=== PATIENT | male | born 1975 | race Caucasian/White ===

== ENCOUNTER → 2017-11-20 08:55 | Outpatient (CLI) | payer OTHER, SELFPAY ==
--- NOTE | 2017-11-20 09:00 | RAD_ITS ---
PROCEDURE: Fluoroscopic guided Hip Injection DATE: November 20, 2017. INDICATION: Male, 42 years old. Chronic hip pain. PHYSICIAN: Yonatan Kat M.D. MEDICATIONS: 60 mg of Kenalog and 4 cc of 1% lidocaine. 2% Lidocaine administered subcutaneously for local anesthesia. ACCESS SITE: Right hip. NEEDLE: 22-gauge spinal needle. FLUOROSCOPY TIME (if supplied): (0:24) minutes/seconds FINDINGS: The risks, benefits, and alternatives to the procedure were explained to the patient. The specific risks of bleeding, infection, and neurovascular injury were detailed and accepted. Witnessed informed consent was obtained. A 22-gauge spinal needle was positioned under radiographic fluoroscopic localization. Approximately 2 cc of Isovue 300 instilled for localization purposes. Medication was then injected. The patient tolerated the procedure well without any immediate complications. The patient was placed supine with head elevated and returned to the floor in stable condition. RAD/Inj/Asp Vinny Jt Should/Hip/Knee IMPRESSION: 1. Successful fluoroscopic guided hip injection. Electronically Signed: Yonatan Kat MD at 11:01 EDT Tel [phone], Service support ,
== END ==
PROVIDERS: Family Provider Family Medicine; PCP Family Medicine; Visit Provider Family Medicine
DX: M16.11 Unilateral primary osteoarthritis, right hip (principal)
CPT/HCPCS: 20610; 77002; Q9967

== ENCOUNTER → 2018-07-10 09:12 | Outpatient (CLI) | payer OTHER, SELFPAY ==
--- NOTE | 2018-07-10 09:30 | RAD_ITS ---
PROCEDURE: Fluoroscopic guided Hip Injection DATE: July 10, 2018. INDICATION: Male, 42 years old. Right hip pain. PHYSICIAN: Yonatan Kat M.D. MEDICATIONS: 40 mg of Kenalog and 4 cc of lidocaine. 2% lidocaine administered subcutaneously for local anesthesia. ACCESS SITE: Right hip. NEEDLE: 22-gauge spinal needle. FLUOROSCOPY TIME (if supplied): (1:07) minutes/seconds FINDINGS: The risks, benefits, and alternatives to the procedure were explained to the patient. The specific risks of bleeding, infection, and neurovascular injury were detailed and accepted. Witnessed informed consent was obtained. A 22-gauge spinal needle was positioned under radiographic fluoroscopic localization. Approximately 2 cc of Isovue-300 instilled for localization purposes. Medication was then injected. The patient tolerated the procedure well without any immediate complications. The patient was placed supine with head elevated and returned to the floor in stable condition. RAD/Inj/Asp Vinny Jt Should/Hip/Knee IMPRESSION: 1. Successful fluoroscopic guided hip injection. Electronically Signed: Yonatan Kat MD at 12:47 EST , Service support ,
== END ==
PROVIDERS: Family Provider Family Medicine; PCP Family Medicine; Referring Provider Family Medicine; Visit Provider Family Medicine
DX: M16.0 Bilateral primary osteoarthritis of hip (principal); M25.551 Pain in right hip
CPT/HCPCS: 20610; 77002; Q9967

== ENCOUNTER → 2019-06-11 09:16 | Outpatient (CLI) | payer OTHER, SELFPAY ==
--- NOTE | 2019-06-11 09:25 | RAD_ITS ---
PROCEDURE: Fluoroscopic guided right Hip Injection DATE: June 11, 2019. INDICATION: Male, 43 years old. Chronic hip pain. PHYSICIAN: Yonatan Kat M.D. MEDICATIONS: 40 mg of Kenalog and 4 cc of 1% lidocaine. 2% Lidocaine administered subcutaneously for local anesthesia. ACCESS SITE: Right hip. NEEDLE: 22-gauge spinal needle. FLUOROSCOPY TIME (if supplied): (0:39) minutes/seconds FINDINGS: The risks, benefits, and alternatives to the procedure were explained to the patient. The specific risks of bleeding, infection, and neurovascular injury were detailed and accepted. Witnessed informed consent was obtained. A 22-gauge needle was positioned under radiograph fluoroscopic localization. Approximately 2 cc of Isovue-300 instilled for localization purposes. Medication was then injected. The patient tolerated the procedure well without any immediate complications RAD/Inj/Asp Vinny Jt Should/Hip/Knee IMPRESSION: 1. Successful fluoroscopic guided hip injection. Electronically Signed: Yonatan Kat, at 10:43 EST , Service support ,
== END ==
PROVIDERS: Family Provider Family Medicine; PCP Family Medicine; Referring Provider Family Medicine; Visit Provider Family Medicine
DX: M16.10 Unilateral primary osteoarthritis, unspecified hip (principal)
CPT/HCPCS: 20610; 77002

== ENCOUNTER → 2020-07-07 08:21 | Outpatient (CLI) | payer BC, SELFPAY ==
--- NOTE | 2020-07-07 08:25 | RAD_ITS ---
PROCEDURE: Fluoroscopic guided Hip Injection DATE: 07/07/2020. INDICATION: Male, 44 years old. Chronic right hip pain. PHYSICIAN: Yonatan Kat M.D. MEDICATIONS: 40 mg of KENALOG and 4 cc of 1% LIDOCAINE. 2% Lidocaine administered subcutaneously for local anesthesia. ACCESS SITE: Right hip. NEEDLE: 22-gauge spinal needle. FLUOROSCOPY TIME (if supplied): (0:54) minutes/seconds FINDINGS: The risks, benefits, and alternatives to the procedure were explained to the patient. The specific risks of bleeding, infection, and neurovascular injury were detailed and accepted. Witnessed informed consent was obtained. A 22-gauge spinal needle was positioned under radiographic fluoroscopic localization. Approximately 2 cc of ISOVUE-300 instilled for localization purposes. Medication was then injected. The patient tolerated the procedure well without any immediate complications. RAD/Inj/Asp Vinny Jt Should/Hip/Knee IMPRESSION: 1. Successful fluoroscopic guided hip injection. Electronically Signed: Yonatan Kat MD at 10:14 EST , Service support ,
== END ==
PROVIDERS: PCP Family Medicine; Referring Provider Family Medicine; Visit Provider Family Medicine
DX: M16.10 Unilateral primary osteoarthritis, unspecified hip (principal)
CPT/HCPCS: 20610; 77002; Q9967

== ENCOUNTER → 2020-11-23 08:14 | Outpatient (CLI) | payer OTHER, SELFPAY ==
--- NOTE | 2020-11-23 08:21 | RAD_ITS ---
PROCEDURE: Fluoroscopic guided Hip Injection DATE: 11/23/2020. INDICATION: Male, 45 years old. Chronic right hip pain. PHYSICIAN: Yonatan Kat M.D. MEDICATIONS: 6 mg of CELESTONE and 4 cc of 1% LIDOCAINE. 2% lidocaine administered subcutaneously for local anesthesia. ACCESS SITE: Right hip. NEEDLE: 22-gauge spinal needle. FLUOROSCOPY TIME (if supplied): (0:24) minutes/seconds FINDINGS: The risks, benefits, and alternatives to the procedure were explained to the patient. The specific risks of bleeding, infection, and neurovascular injury were detailed and accepted. Witnessed informed consent was obtained. A 22-gauge spinal needle was positioned under radiographic fluoroscopic localization. Approximately 2 cc of ISOVUE-300 instilled for localization purposes. Medication was then injected. The patient tolerated the procedure well without any immediate complications. RAD/Inj/Asp Vinny Jt Should/Hip/Knee IMPRESSION: 1. Successful fluoroscopic guided hip injection. Electronically Signed: Yonatan Kat MD at 10:02 EDT , Service support ,
== END ==
PROVIDERS: PCP Family Medicine
DX: M16.10 Unilateral primary osteoarthritis, unspecified hip (principal)
CPT/HCPCS: 20610; 77002; Q9965; J0702

== ENCOUNTER 2021-07-16 13:00 | Outpatient (RCR) | payer OTHER, SELFPAY ==
--- NOTE | 2021-06-25 14:27 | HP.PTEVAL ---
Patient's Visit Information LIS MISHRA is a 45 year old M referred to Physical Therapy by [facility] with a diagnosis of R hip resurfacing procedure 05/11. Date of Evaluation: 06/25/21 Physical Therapist: Alexi Palmer, DPT, OCS, CSCS - Visit Plan Frequency: 3x /Week Duration: 4-6 Weeks Plan: 3x/week for 4-6 weeks for... 1. rollout and ROM R hip flexor and quad and stretching into hip extension/ROM. 2. strength R hip stabs, no painful SLR, ROM R hip and progress to I gym TM, elliptical and machine strength program for LE and whole body. Teach trasnfer off floor through half kneel as motion improves. Get doing home hip extension ROM as tolerated. Precautions similar to posterior hip replacement. 3. ice if needed. - Subjective Verena hip procedure on R hip 05/11/21. Had a lot of OA in the joint prior and excessive use. Lots of pain prior. Prior to surgery had been getting arthroscopic injections due to pain. Crutches for 6 weeks for NWB at first then to 75%. Rid of them recently. It feels weak but not painful. is doing SLR. Sleep is OK, can get uncomfortable at night. 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 Dressing self except socks and R shoe needs some help as bending FW is not comfortable. Precautions are no running for first year, no SLR, no squats.Not lift over 50#. Hobbies include hiking and going to gym machines. HEP : AP, QS, GS, pillow squeezes, SAQ, windshield wipers, standing march and abduction. L hip is OK, has some OA. - Pain R hip Pain Intensity (Out of 10): 0 Pain Intensity Range: 0, 4 Comment: tired soreness. - Objective R antalgia with trendelenberg in gait, wide RADHA and avoids extension at R hip in end range of stance. I with gait and good balance. Trasnfers I with UE. Steps reciprocal with one rail and weakness evident R hip ascending and descending. R hip AROM to 0 ext, 80 with assist flexion, rotations not tested today. Abduction at 17 degrees. PROM numbers similar. painful end feel. strength R hip abd 3, ext 3, flexion 3, rotations not tested, L hip 4+/5. knee flexion and ext 5/5 B, full knee flexion and extension. Tends to hold R knee slightly flexed in supine. ankle AROM WFL and strength 5/5. quad and hip flexors mod to max tight on R vs L. - Balance/Special Test Scores Lower Extremity Functional Score: 26 - Goals Goal 1:: Walk without wide RADHA, with good hip extension adn just slight trendelenberg. Goal Time Frame: 4-6 Weeks Goal 2:: Hip strength 4/5 on R to ehlp with funcitonal deficits Goal Time Frame: 4-6 Weeks Goal 3:: Increase R hip ROM to 5 ext and 95 flexion to help with donning shoes and walking pattern. Goal Time Frame: 4-6 Weeks Goal 4:: Plan to return to work Goal Time Frame: 4-6 Weeks Goal 5:: I gym ex program Goal Time Frame: 4-6 Weeks - Rehabilitation Potential Physical Therapy Diagnosis: weazkness and diminished ROM effecting function for degenerative hip. Rehabilitation Potential: Good - Anticipated Interventions Patient/Client Instruction: Educate patient on: Condition, Plan of Care For the Purpose of:: To decrease pain, To increase ROM, To improve muscle performance and motor function, To increase tolerance to activity/condition/position, To improve ability of physical actions for home/community/work/leisure, To improve gait and locomotor functions Therapeutic Exercise to Include: Strength training, Postural training, Flexibilty training, Gait and locomotor training, Passive ROM, Active ROM For the Purpose of:: To decrease pain, To improve nutrient delivery to tissue, To increase tolerance to activity/condition/position, To improve ability of physical actions for home/community/work/leisure, To improve gait and locomotor functions Manual Therapy Techniques to Include: Mobilization, Passive ROM For the Purpose of:: To increase ROM Cryotherapy (ice pack, ice massage): Yes For the Purpose of:: To decrease pain, To decrease swelling/inflammation Thank you for the opportunity to evaluate your patient. For Medicare and Medicare HMO plans, please review the plan of care and approve it. It will need to be FAXED BACK to us at [phone] for Medicare purposes. For Medicare only, by signing this I certify the plan of care. Please let me know if there are questions or concerns regarding this plan of care. Physician Signature: Date:
--- NOTE | 2021-09-06 17:28 | HP.PT.NRP ---
LIS MISHRA was seen in my office for initial evaluation on 06/25/21. The following Plan of Care was established for this patient: Initial Frequency: 3x /Week Initial Duration: 4-6 Weeks Patient/Client Instruction: Educate patient on: Condition, Plan of Care For the Purpose of:: To decrease pain, To increase ROM, To improve muscle performance and motor function, To increase tolerance to activity/condition/position, To improve ability of physical actions for home/community/work/leisure, To improve gait and locomotor functions Therapeutic Exercise to Include: Strength training, Postural training, Flexibilty training, Gait and locomotor training, Passive ROM, Active ROM For the Purpose of:: To decrease pain, To improve nutrient delivery to tissue, To increase tolerance to activity/condition/position, To improve ability of physical actions for home/community/work/leisure, To improve gait and locomotor functions Manual Therapy Techniques to Include: Mobilization, Passive ROM For the Purpose of:: To increase ROM Cryotherapy (ice pack, ice massage): Yes For the Purpose of:: To decrease pain, To decrease swelling/inflammation This patient was last seen in our office 07/16/21. Pertinent comments regarding their Physical therapy will appear below: Pt seen 6 visits of POC and was progressing nicely. He cancelled the last couple visits due to sickness and neglected to reschedule. at this point, it has been over 6 weeks and I will discontinue due to nonattendance. At this point I will be discontinuing this patient from physical therapy. I would be happy to see this patient again in the future if found appropriate by the physician. Thank you! Alexi Palmer, DPT, OCS, CSCS Balance/Gait/Functional tests - Balance/Special Test Scores Lower Extremity Functional Score: 26
== END 2021-07-16 19:00 | disposition home or self-care (01) ==
LOC: PT 13:00
PROVIDERS: PCP Family Medicine
DX: Z98.890 Other specified postprocedural states (principal); Z96.649 Presence of unspecified artificial hip joint
CPT/HCPCS: 97110; 97140; 97161